=== PATIENT | female | born 1980 | race Caucasian/White ===

== ENCOUNTER 2019-12-04 16:08 | Emergency (ER) | payer BC ==
--- NOTE | 2019-12-04 18:22 | CR ---
Left hand: 3 views left hand were obtained. Comparison: No previous study. Overlying bandage is seen obscuring slight details of the distal fifth finger. Joint spaces are preserved. No discrete fracture, dislocation or other bony abnormality is appreciated. Impression: 1. Overlying bandage. 2. No discrete abnormality is seen on left hand exam. Diagnostic code #2 This report was dictated in MDT
[2019-12-04] MEDS ORDERED: Diphtheria,Pertussis(Acell),Tetanus Vaccine 0.5 ML Syringe IM ONE (19:22)
--- NOTE | 2019-12-04 19:27 | EDM.PDOC ---
ED HPI GENERAL MEDICAL PROBLEM - General Chief Complaint: Upper Extremity Injury/Pain Stated Complaint: LT PINKY INJURY Time Seen by Provider: 12/04/19 19:00 Source of Information: Reports: Patient History Limitations: Reports: No Limitations - History of Present Illness INITIAL COMMENTS - FREE TEXT/NARRATIVE: HISTORY AND PHYSICAL: History of present illness: Patient is a 39-year-old female who presents to the ED today with concern of a abrasion to her left hand pinky finger that occurred at about 9 this morning. Patient states that she initially got it to stop bleeding but after taking the bandage off tonight, it has continued to rebleed. Patient states that is not a lot of blood but there is a steady trickle from the wound. Patient states she has been able to use the hand since without issues. Patient states she is not up-to-date on her tetanus. Patient denies any other symptoms or concerns. Patient denies fever, chills, chest pain, shortness of breath, or cough. Denies headache, neck stiff ness, change in vision, syncope, or near syncope. Denies nausea, vomiting, abdominal pain, diarrhea, constipation, or dysuria. Has not noted any blood in urine or stool. Patient has been eating and drinking appropriately. Review of systems: As per history of present illness and below otherwise all systems reviewed and negative. Past medical history: As per history of present illness and as reviewed below otherwise noncontributory. Surgical history: As per history of present illness and as reviewed below otherwise noncontributory. Social history: See social history for further information Family history: As per history of present illness and as reviewed below otherwise noncontributory. Physical exam: General: Patient is alert, oriented, and in no acute distress. Patient sitting comfortably on exam table. HEENT: Atraumatic, normocephalic, pupils equal and reactive bilaterally, negative for conjunctival pallor or scleral icterus, mucous membranes moist, TMs normal bilaterally, throat clear, neck supple, nontender, trachea midline. No drooling or trismus noted. No meningeal signs. No hot potato voice noted. Lungs: Clear to auscultation, breath sounds equal bilaterally, chest nontender. Heart: S1S2, regular rate and rhythm without overt murmur Abdomen: Soft, nondistended, nontender. Negative for masses or hepatosplenomegaly. Negative for costovertebral tenderness. Pelvis: Stable nontender. Genitourinary: Deferred. Rectal: Deferred. Skin: Intact, warm, dry. No lesions or rashes noted. Extremities: There is a 1cm abrasion of the left pinky with a small but steady trickle of blood from the central abrasion. Patient has full ROM of the complete digit as well as remaining digits of the LUE. Radial pulse is grossly intact with capillary refill < 2 seconds. Otherwise, atraumatic, negative for cords or calf pain. Neurovascular unremarkable. Neuro: Awake, alert, oriented. Cranial nerves II through XII unremarkable. Cerebellum unremarkable. Motor and sensory unremarkable throughout. Exam nonfocal. Notes: Discussed importance for follow-up with a primary care provider. Voices understanding and is agreeable to plan of care. Denies any further questions or concerns at this time. Diagnostics: hand x-ray Therapeutics: Surgicel w sterile dressing placed by nursing staff, tetanus Prescription: None Impression: Finger abrasion, left Plan: 1. Keep bandage on for 24 hours before removal of dressing. You can alternate ibuprofen and Tylenol as directed for pain and discomfort. 2. Follow-up with a primary care provider as discussed. Return to the ED as needed and as discussed. Definitive disposition and diagnosis as appropriate pending reevaluation and review of above. Left Finger-Little Pain Score (Numeric/FACES): 3 - Related Data Allergies Allergy/AdvReac Type Severity Reaction Status Date / Time No Known Allergies Allergy Verified 06/23/17 09:57 Home Meds: Home Meds . 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: Musculoskeletal History: Reports: None Neurological History: Reports: None Psychiatric History: Reports: Depression Endocrine/Metabolic History: Reports: None Hematologic History: Reports: None Immunologic History: Reports: None Oncologic (Cancer) History: Reports: None Dermatologic History: Reports: None - Infectious Disease History Infectious Disease History: Reports: Chicken Pox - Past Surgical History Head Surgeries/Procedures: Reports: None Social & Family History - Family History Family Medical History: Noncontributory - Tobacco Use Smoking Status *Q: Current Every Day Smoker Years of Tobacco use: 25 Packs/Tins Daily: 1 Second Hand Smoke Exposure: No - Caffeine Use Caffeine Use: Reports: Coffee, Energy Drinks - Recreational Drug Use Recreational Drug Use: No Review of Systems - Review of Systems Review Of Systems: Comprehensive ROS is negative, except as noted in HPI. ED EXAM, GENERAL - Physical Exam Exam: See Below (see dictation) Course - Vital Signs Last Recorded V/S: Last Vital Signs Temp Pulse 84 12/04/19 17:05 Resp 20 12/04/19 17:05 BP 120/85 12/04/19 17:05 Pulse Ox 98 12/04/19 17:05 - Orders/Labs/Meds Orders: Active Orders 24 hr Category Date Time Status Vaccines to be Administered [RC] PER UNIT ROUTINE Care 12/04/19 19:22 Active Diphth,Pertuss(Acell),Tet Vac [Adacel] Med 12/04/19 19:22 Once 0.5 ml IM .ONCE ONE Medication Orders Diphtheria/Tetanus/Acell Pertussis (Adacel) 0.5 ml IM .ONCE ONE Stop: 12/04/19 19:23 Meds: Medications Generic Name Dose Route Start Last Admin Trade Name Freq PRN Reason Stop Dose Admin Diphtheria/Tetanus/Acell Pertussis 0.5 ml 12/04/19 19:22 Adacel IM 12/04/19 19:23 .ONCE ONE Departure - Departure Time of Disposition: 19:22 Disposition: Home, Self-Care 01 Clinical Impression: Finger abrasion Qualifiers: Encounter type: initial encounter Qualified Code(s): S60.419A - Abrasion of unspecified finger, initial encounter - Discharge Information Referrals: PCP,None [Primary Care Provider] - Additional Instructions: The following information is given to patients seen in the emergency department who are being discharged to home. This information is to outline your options for follow-up care. We provide all patients seen in our emergency department with a follow-up referral. The need for follow-up, as well as the timing and circumstances, are variable depending upon the specifics of your emergency department visit. If you don't have a primary care physician on staff, we will provide you with a referral. We always advise you to contact your personal physician following an emergency department visit to inform them of the circumstance of the visit and for follow-up with them and/or the need for any referrals to a consulting specialist. The emergency department will also refer you to a specialist when appropriate. This referral assures that you have the opportunity for follow-up care with a specialist. All of these measure are taken in an effort to provide you with optimal care, which includes your follow-up. Under all circumstances we always encourage you to contact your private physician who remains a resource for coordinating your care. When calling for follow-up care, please make the office aware that this follow-up is from your recent emergency room visit. If for any reason you are refused follow-up, please contact the [facility] Emergency Department at and asked to speak to the emergency department charge nurse. [facility] [address] [place] [id number] [place] [address] 1. Keep bandage on for 24 hours before removal of dressing. You can alternate ibuprofen and Tylenol as directed for pain and discomfort. 2. Follow-up with a primary care provider as discussed. Return to the ED as needed and as discussed. Sepsis Event Note (ED) - Evaluation Sepsis Screening Result: No Definite Risk - Focused Exam Vital Signs: Vital Signs Pulse Resp BP Pulse Ox 12/04/19 17:05 84 20 120/85 98 - My Orders Last 24 Hours: My Active Orders 12/04/19 19:22 Vaccines to be Administered [RC] PER UNIT ROUTINE Diphth,Pertuss(Acell),Tet Vac [Adacel] 0.5 ml IM .ONCE ONE - Assessment/Plan Last 24 Hours: My Active Orders 12/04/19 19:22 Vaccines to be Administered [RC] PER UNIT ROUTINE Diphth,Pertuss(Acell),Tet Vac [Adacel] 0.5 ml IM .ONCE ONE
== END 2019-12-04 20:05 | disposition home or self-care (01) ==
LOC: MW.ED 16:08
DX: S60.417A Abrasion of left little finger, initial encounter (principal); Z23 Encounter for immunization; F17.210 Nicotine dependence, cigarettes, uncomplicated; W22.8XXA Striking against or struck by other objects, initial encounter
CPT/HCPCS: 73130-26-LT; 73130-LT; 90471; 90715; 99283; 99283-25

== ENCOUNTER 2021-01-21 19:15 | Emergency (ER) | payer BC ==
[2021-01-21] MEDS ORDERED: Acetaminophen 325 MG Tab PO ONE (22:06)
[2021-01-21] MEDS ORDERED: Ibuprofen 600 MG Tab PO ONE (22:06)
--- NOTE | 2021-01-21 23:01 | EDM.PDOC ---
ED HPI GENERAL MEDICAL PROBLEM - General Chief Complaint: General Stated Complaint: COUGH,HEADACHE AND CHILLS Time Seen by Provider: 01/21/21 21:52 - History of Present Illness INITIAL COMMENTS - FREE TEXT/NARRATIVE: HISTORY AND PHYSICAL: History of present illness: This is a 40-year-old female who presents ER today secondary to URI symptoms as well as a headache for 1 to 2 days. Patient reports normal she will take ibuprofen or Tylenol and her headache would resolve however headache is now resolved. Patient reports some tactile fevers. Patient has any rhinorrhea or sore throat. Patient has a chest pain, shortness of breath, abdominal pain, dysuria, frequency, urgency, nausea, vomiting, diarrhea. 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 Patient has not had a Covid vaccinations. Patient has any hypertension, diabetes, liver, lung, kidney problems. Patient has any alcohol or drugs. Review of systems: As per history of present illness and below otherwise all systems reviewed and negative. Past medical history: As per history of present illness and as reviewed below otherwise noncontributory. Surgical history: As per history of present illness and as reviewed below otherwise noncontributory. Social history: No reported history of drug abuse. Family history: As per history of present illness and as reviewed below otherwise noncontributory. Physical exam: HEENT: Atraumatic, normocephalic, pupils reactive, negative for conjunctival pallor or scleral icterus, mucous membranes moist, throat clear, neck supple, nontender, trachea midline. Lungs: Clear to auscultation, breath sounds equal bilaterally, chest nontender. Heart: S1S2, regular, negative for clicks, rubs, or JVD. Abdomen: Soft, nondistended, nontender. Negative for masses or hepatosplenomegaly. Negative for costovertebral tenderness. Pelvis: Stable nontender. Genitourinary: Deferred. Rectal: Deferred. Extremities: Atraumatic, negative for cords or calf pain. Neurovascular unremarkable. Neuro: Awake, alert, oriented. Cranial nerves II through XII unremarkable. Cerebellum unremarkable. Motor and sensory unremarkable throughout. Exam nonfocal. Diagnostics: [] Covid positive Therapeutics: [] Assessment and plan: 40-year-old female who presents ER today with headache and URI symptoms. Patient's Covid test is positive. Patient's pulse ox is 98% on room air. Patient is nontoxic-appearing. I have discussed with the patient return precautions for Covid and the need for quarantine and isolation. Patient has been given acetaminophen and Tylenol here in the ED and does feel slightly better. Patient's temperature in the ED was 100.8. This was checked orally by me. Reassessment at the time of disposition demonstrates that the patient is in no acute distress. The patient has remained stable throughout the entire ED visit and is without objective evidence for acute process requiring urgent intervention or hospitalization. The patient is stable for discharge, counseling is provided as documented above, discussed symptomatic treatment and specific conditions for return. I have spoken with the patient/caregiver and discussed todays findings, in addition to providing specific details for the plan of care. Questions are answered and there is agreement with the plan. Definitive disposition and diagnosis as appropriate pending reevaluation and review of above. 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: Musculoskeletal History: Reports: None Neurological History: Reports: None Psychiatric History: Reports: Depression Endocrine/Metabolic History: Reports: None Hematologic History: Reports: None Immunologic History: Reports: None Oncologic (Cancer) History: Reports: None Dermatologic History: Reports: None - Infectious Disease History Infectious Disease History: Reports: Chicken Pox - Past Surgical History Head Surgeries/Procedures: Reports: None Social & Family History - Family History Family Medical History: No Pertinent Family History - Tobacco Use Tobacco Use Status *Q: Current Every Day Tobacco User Years of Tobacco use: 25 Packs/Tins Daily: 0.5 - Caffeine Use Caffeine Use: Reports: Coffee - Alcohol Use Days Per Week of Alcohol Use: 1 Number of Drinks Per Day: 5 Total Drinks Per Week: 5 - Recreational Drug Use Recreational Drug Use: No ED ROS GENERAL - Review of Systems Review Of Systems: See Below ED EXAM, GENERAL - Physical Exam Exam: See Below Course - Vital Signs Last Recorded V/S: Last Vital Signs Temp 98.6 F 01/21/21 21:33 Pulse 102 H 01/21/21 21:33 Resp 16 01/21/21 21:33 BP 111/73 01/21/21 21:33 Pulse Ox 97 01/21/21 21:33 - Orders/Labs/Meds Labs: Laboratory Tests 01/21/21 Range/Units 21:50 SARS-CoV-2 RNA (BELEN) POSITIVE H (NEGATIVE) Meds: Medications Discontinued Medications Generic Name Dose Route Start Last Admin Trade Name Shelly PRN Reason Stop Dose Admin Acetaminophen 650 mg 01/21/21 22:06 01/21/21 22:16 Acetaminophen 325 Mg Tab PO 01/21/21 22:07 650 mg NOW ONE Administration Ibuprofen 600 mg 01/21/21 22:06 01/21/21 22:16 Ibuprofen 600 Mg Tab PO 01/21/21 22:07 600 mg ONETIME ONE Administration Departure - Departure Time of Disposition: 23:00 Disposition: Home, Self-Care 01 Condition: Good Clinical Impression: COVID-19 virus infection, Headache - Discharge Information Instructions: COVID-19 Vaccine Information, What You Should Know About COVID-19 to Protect Yourself and Others - CDC, COVID-19 Frequently Asked Questions, 10 Things You Can Do to Manage Your COVID-19 Symptoms at Home - [facility] (10/23/2020) Referrals: PCP,None [Primary Care Provider] - Additional Instructions: You were seen and evaluated in ER today secondary to low-grade fevers, headaches, and viral type symptoms. Your Covid test today is positive. You may take acetaminophen Tylenol as needed for fevers and headaches. 1. Your COVID-19 screening is positive. That means you do have the coronavirus and you are considered contagious. Your vital signs and oxygen saturation are well enough that you were able to monitor your symptoms at home. Continue to monitor for trouble breathing, new confusion or inability to arouse, bluish lips or face or any of the other symptoms we discussed -if this occurs please return to the emergency room. 2. Please self quarantine over the next 10 days. Inform any persons that you have been in contact with since you started becoming symptomatic that you have tested positive; they should be made aware and take the appropriate steps as needed. 3. You can take NyQuil during the evening to help get a restful night sleep. May alternate Tylenol and ibuprofen as needed for pain and fever management. 4. The [facility] department will be calling you and following up with you. The [place] [facility] Hotline phone number , They are open Monday - Monday 7am - 7pm. Follow up with your primary care provider for re-evaluation and re-testing after the 10 day quarantine and discuss when you should be seen. The following information is given to patients seen in the emergency department who are being discharged to home. This information is to outline your options for follow-up care. We provide all patients seen in our emergency department with a follow-up referral. The need for follow-up, as well as the timing and circumstances, are variable depending upon the specifics of your emergency department visit. If you don't have a primary care physician on staff, we will provide you with a referral. We always advise you to contact your personal physician following an emergency department visit to inform them of the circumstance of the visit and for follow-up with them and/or the need for any referrals to a consulting specialist. The emergency department will also refer you to a specialist when appropriate. This referral assures that you have the opportunity for follow-up care with a specialist. All of these measure are taken in an effort to provide you with optimal care, which includes your follow-up. Under all circumstances we always encourage you to contact your private physician who remains a resource for coordinating your care. When calling for follow-up care, please make the office aware that this follow-up is from your recent emergency room visit. If for any reason you are refused follow-up, please contact the [facility] Emergency Department at and asked to speak to the emergency department charge nurse. [facility] [address] [place] [id number] [address] Sepsis Event Note (ED) - Evaluation Sepsis Screening Result: No Definite Risk - Focused Exam Vital Signs: Vital Signs Temp Pulse Resp BP Pulse Ox 01/21/21 21:33 98.6 F 102 H 16 111/73 97
== END 2021-01-21 23:13 | disposition home or self-care (01) ==
LOC: MW.ED 19:15
DX: U07.1 COVID-19 (principal); Z72.0 Tobacco use; Z79.899 Other long term (current) drug therapy
CPT/HCPCS: 87635; 99284; A9270; U0002

== ENCOUNTER 2021-12-15 12:25 | Emergency (ER) | payer BC ==
[2021-12-15] MEDS ORDERED: Cetirizine 10 MG Tab PO ONE (13:45)
== END 2021-12-15 15:07 | disposition home or self-care (01) ==
LOC: MW.ED 12:25
DX: T78.40XA Allergy, unspecified, initial encounter (principal); Z79.899 Other long term (current) drug therapy
CPT/HCPCS: 99283; A9270

== ENCOUNTER 2022-09-04 15:06 | Emergency (ER) | payer BC ==
[2022-09-04 15:30] LABS: APPEARANCE,URINE SLT CLOUDY; BILIRUBIN,URINE NEGATIVE (NEGATIVE); COLOR,URINE YELLOW; GLUCOSE,URINE NEGATIVE (NEGATIVE); KETONES,URINE NEGATIVE (NEGATIVE); LEUKOCYTE ESTERASE,URINE NEGATIVE (NEGATIVE); NITRITE,URINE POSITIVE (NEGATIVE); OCCULT BLOOD,URINE NEGATIVE (NEGATIVE); PH,URINE 7.5 (5.0-8.0); PROTEIN,URINE NEGATIVE (NEGATIVE)
[2022-09-04] MEDS ORDERED: Diphtheria,Pertussis(Acell),Tetanus Vaccine 0.5 ML Syringe IM ONE (15:34)
[2022-09-04 15:53] LABS: BACTERIA,URINE 3+ (NEGATIVE); EPITHELIAL CELLS,URINE FEW (NONE-FEW); RBC,URINE 0-2 (0-2/HPF)
== END 2022-09-04 16:05 | disposition home or self-care (01) ==
LOC: MW.ED 15:06
DX: N30.00 Acute cystitis without hematuria (principal); M79.672 Pain in left foot; Z23 Encounter for immunization; Z88.6 Allergy status to analgesic agent; Z79.899 Other long term (current) drug therapy
CPT/HCPCS: 81001; 90471; 90715; 99283; 99283-25